=== PATIENT | male | born 1985 | race Caucasian/White ===

== ENCOUNTER 2018-03-09 16:21 | Emergency (ER) | payer OTHER ==
[2018-03-09 16:37] VITALS: BP 139/83; PULSE 87; RESP 16; TEMP 97.7
[2018-03-09] MEDS ORDERED: DIPH,PERTUS(ACELL)TETVAC-LF 0.5 ML VIAL IM ONE (17:34)
--- NOTE | 2018-03-09 18:04 | ED ---
General Adult HPI - General Chief complaint: Wound/Laceration Stated complaint: [facility] rt leg lac Time Seen by Provider: 03/09/18 17:31 Source: patient, RN notes reviewed Mode of arrival: ambulatory Limitations: no limitations - History of Present Illness Initial comments: Patient 32-year-old male presenting to the emergency room today with chief complaint of laceration to the right boyd. He states he was at work when a metal shelf collapsed. He mentioned causes laceration. Patient states unsure of his tetanus status. Patient denies any other complaints or associated symptoms at this time. Patient denies any recent fever, chills, shortness of breath, chest pain, back pain, abdominal pain, nausea or vomiting, numbness or tingling, dysuria or hematuria, constipation or diarrhea, headaches or visual changes, or any other complaints. - Related Data Allergies Allergy/AdvReac Type Severity Reaction Status Date / Time No Known Allergies Allergy Verified 03/09/18 16:37 Review of Systems ROS Statement: Those systems with pertinent positive or pertinent negative responses have been documented in the HPI. ROS Other: All systems not noted in ROS Statement are negative. 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 Neck: The neck is supple, there is no tenderness or JVD. Cardiovascular: There is a regular rate and rhythm. No murmur, rub or gallop is appreciated. Respiratory: Lungs are clear to auscultation, respirations are non-labored, breath sounds are equal. No wheezes, stridor, rales, or rhonchi. Musculoskeletal/skin: Patient does have laceration running horizontally to the right lower portion measuring approximately 3 cm across. Mild venous oozing. Full range motion. Sensation intact. Neurological: A&O x 3. CN II-XII intact, There are no obvious motor or sensory deficits. Coordination appears grossly intact. Speech is normal. Psychiatric: Normal mood and affect. Limitations: no limitations Course Vital Signs 03/09/18 16:34 Temperature 97.7 F Pulse Rate 87 Respiratory 16 Rate Blood Pressure 139/83 O2 Sat by Pulse 96 Oximetry Medical Decision Making - Medical Decision Making Options were discussed with the patient about sutures. 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 Patient has requested Steri-Strips. Disposition Clinical Impression: Laceration Disposition: HOME SELF-CARE Condition: Good Instructions: Laceration (ED) Additional Instructions: Please allow Steri-Strips off on their own. Please watch for signs of infection which may include increased pain comes on, redness, fever or chills. Please return to emergency room for any signs of infection or any other concerns. Is patient prescribed a controlled substance at discharge?: No Referrals: None,Stated [Primary Care Provider] - 1-2 days Time of Disposition: 18:02
== END 2018-03-09 18:30 | disposition home or self-care (01) ==
LOC: EC 16:21
DX: S81.811A Laceration without foreign body, right lower leg, initial encounter (principal); F17.200 Nicotine dependence, unspecified, uncomplicated; Z53.29 Procedure and treatment not carried out because of patient's decision for other reasons; Z23 Encounter for immunization; W20.8XXA Other cause of strike by thrown, projected or falling object, initial encounter; Y92.69 Other specified industrial and construction area as the place of occurrence of the external cause; Y99.0 Civilian activity done for income or pay
CPT/HCPCS: 90471; 90715; 99282

== ENCOUNTER 2019-03-25 21:01 | Emergency (ER) | payer OTHER ==
[2019-03-25 21:30] VITALS: BP 133/94; PULSE 79; RESP 18; TEMP 98.2
== END 2019-03-25 22:34 ==
LOC: EC 21:01
DX: Z02.89 Encounter for other administrative examinations (principal)

== ENCOUNTER 2019-06-13 21:37 | Emergency (ER) | payer BC ==
[2019-06-13 22:00] VITALS: BP 130/73; PULSE 98; RESP 18; TEMP 98.6
[2019-06-13] MEDS ORDERED: LIDOCAINE 1% INJ 10MG/ML (20 ML MDV) SQ ONE (22:21)
[2019-06-13] MEDS ORDERED: TOPICAL SKIN ADHESIVE 1 EACH AMP TOPICAL ONE (23:00)
--- NOTE | 2019-06-14 00:19 | ED ---
General Adult HPI - General Source: patient Mode of arrival: ambulatory Limitations: no limitations <Santiago Castrejon - Last Filed: 06/14/19 00:34> <Ketty Snider P - Last Filed: 06/14/19 02:18> - General Chief complaint: Wound/Laceration Stated complaint: leg lac Time Seen by Provider: 06/13/19 22:08 - History of Present Illness Initial comments: Patient is a 33-year-old male with a connective tissue disorder is presenting to emergency Department with a laceration. Patient reports he was chasing his son when he lacerated the anterior aspect of the right lower leg. Patient reports due to his connective tissue disorder he tends to get lacerations with minor trauma. Patient reports mild throbbing pain at the site of injury. Patient reports his vaccination status is up-to-date. Patient denies taking medication to alleviate the symptoms. Patient denies any numbness or tingling. Patient is not on blood thinners. (Santiago Castrejon) - Related Data Home Medications Medication Instructions Recorded Confirmed [id number] 1 tab PO DAILY PRN 06/13/19 06/13/19 [Excedrin] Propranolol HCl [Inderal LA] 120 mg PO DAILY 06/13/19 06/13/19 Previous Rx's Medication Instructions Recorded Cephalexin [Keflex] 500 mg PO Q6HR #40 cap 06/14/19 Allergies Allergy/AdvReac Type Severity Reaction Status Date / Time No Known Allergies Allergy Verified 06/13/19 22:14 Review of Systems ROS Other: All systems not noted in ROS Statement are negative. <Santiago Castrejon - Last Filed: 06/14/19 00:34> ROS Other: All systems not noted in ROS Statement are negative. <Ketty Snider P - Last Filed: 06/14/19 02:18> ROS Statement: Those systems with pertinent positive or pertinent negative responses have been documented in the HPI. Past Medical History Past Medical History: No Reported History Additional Past Medical History / Comment(s): ehlersenlose syndrome History of Any Multi-Drug Resistant Organisms: None Reported Additional Past Surgical History / Comment(s): head aneurysm repair Past Psychological History: No Psychological Hx Reported Smoking Status: Current every day smoker Past Alcohol Use History: Occasional Past Drug Use History: None Reported <Santiago Castrejon - Last Filed: 06/14/19 00:34> General Exam Limitations: no limitations <Santiago Castrejon - Last Filed: 06/14/19 00:34> - General Exam Comments Initial Comments: General: Well-developed well-nourished distress HEENT: Normocephalic/atraumatic, PERLL, pharynx erythema, swallowing well, EAC no erythema, no exudates, TM clear, no cervical lymph nodes Neck: Supple, nontender, trachea midline Chest/Lungs: Normal respirations, no signs of respiratory distress clear to auscultation bilaterally no wheezes, rales, rhonchi Cardiac: Regular rate and rhythm, normal S1-S2, no murmurs rubs or gallops Abdomen/GI: Soft nontender, bowel sounds equal or quadrant x4, no guarding, no rebound no CVA tenderness Musculoskeletal: Laceration on the anterior aspect of the right lower leg measuring approximately 4 cm, flap formation, minimal active bleeding at the site of injury, full range of motion, +2 dorsalis pedis and posterior tibialis, scarring on bilateral lower extremities from previous injuries, nodules on right MTP joints Skin: Warmth, no rashes or lesions, no cyanosis or diaphoresis Neurologic: AAO x 3, CN 2-12 intact, Psychiatric: Mood and affect normal, judgment normal (Santiago Castrejon) Course Vital Signs 06/13/19 21:58 Temperature 98.6 F Pulse Rate 98 Respiratory 18 Rate Blood Pressure 130/73 O2 Sat by Pulse 97 Oximetry Procedures - Laceration Laceration #1 Consent Obtained: verbal consent Indication: laceration Site: lower extremity Size (cm): 4 Description: flap, clean Depth: simple, single layer Anesthetic Used: lidocaine 1% Anesthesia Technique: local infiltration Amount (mls): 10 Pre-repair: irrigated extensively Type of Sutures: nylon Size of Sutures: 4-0 Number of Sutures: 9 Technique: simple, interrupted Patient Tolerated Procedure: well <Santiago Castrejon - Last Filed: 06/14/19 00:34> Medical Decision Making <Santiago Castrejon - Last Filed: 06/14/19 00:34> <Ketty Snider - Last Filed: 06/14/19 02:18> - Medical Decision Making Patient is a 33-year-old male with history of connective tissue disorder is presenting to emergency Department with a laceration. Laceration site was repaired with 9 sutures the patient tolerated the procedure well. Patient reports that sutures tend to feel after 2-3 days based on previous expenses, thus Sterile strips were applied in addition to the sutures. Patient given Tylenol 3 starter pack for pain. Patient advised to follow proper wound care instructions. Patient advised to return to emergency Department in 10 days for suture removal or sooner if symptoms worsen. Patient also prescribed Keflex prophylactically. Strict return parameters were thoroughly discussed the patient was understanding and agreeable. Case discussed with physician. (Santiago Castrejon) I was available for consultation in the emergency department. The history and physical exam were done by the midlevel provider. I was consulted for this patient's care. I reviewed the case with the midlevel provider and based on their presentation of the patient, I agree with the assessment, medical decision making and plan of care as documented. Chart was dictated using [employer] dictation software. Attempts were made to correct any dictation errors however some typographical errors may persist. (Ketty Snider) Disposition Is patient prescribed a controlled substance at d/c from ED?: No Time of Disposition: 00:18 <Santiago Castrejon - Last Filed: 06/14/19 00:34> <Ketty Snider - Last Filed: 06/14/19 02:18> Clinical Impression: Laceration Disposition: HOME SELF-CARE Condition: Stable Instructions (If sedation given, give patient instructions): Care For Your Stitches (DC), Laceration (DC), Skin Adhesive Care (ED), Steristrips (ED) Additional Instructions: Please take prescribed medication as directed. Please return to emergency department for suture removal in 10 days. Please follow with primary care. Prescriptions: Cephalexin [Keflex] 500 mg PO Q6HR #40 cap Referrals: None,Stated [Primary Care Provider] - 1-2 days
[2019-06-14] MEDS ORDERED: SODIUM CHLORIDE 0.9% IRRIG 1,000 ML BTL IRRIGATION ONE (00:34)
[2019-06-14] MEDS ORDERED: ACET/COD 300 MG/30 MG STARTER PACK 6 TAB BTL PO STA (00:46)
== END 2019-06-14 00:50 | disposition home or self-care (01) ==
LOC: EC 21:37
DX: S81.811A Laceration without foreign body, right lower leg, initial encounter (principal); Q79.6 Ehlers-Danlos syndromes; F17.200 Nicotine dependence, unspecified, uncomplicated; Z79.899 Other long term (current) drug therapy; W26.8XXA Contact with other sharp object(s), not elsewhere classified, initial encounter; Y93.02 Activity, running; Y92.007 Garden or yard of unspecified non-institutional (private) residence as the place of occurrence of the external cause
CPT/HCPCS: 99282; 12002; J2001